=== PATIENT | female | born 1975 | race African-American/Black ===

== ENCOUNTER 2023-03-26 06:18 | Emergency (ER) | payer MEDICAID, OTHER ==
[~2023-03-26] VITALS: Ht 154.9 cm; Wt 69.0 kg
[~2023-03-26 06:18] MED LIST: HYDR5POW; ULTRAM
[2023-03-26 06:23] VITALS: TEMP 98.1; O2SAT 99
[2023-03-26] MEDS ORDERED: IBUP-2028 PO (07:21)
[2023-03-26 07:30] VITALS: BP 132/68; PULSE 82; RESP 18
[2023-03-26] MEDS ORDERED: IBUPROFEN 400MG TABLET PO ONE (07:30)
== END 2023-03-26 08:34 | disposition home or self-care (01) ==
LOC: ER 06:18
DX: M25.562 Pain in left knee (principal)
CPT/HCPCS: 73560; 99283